=== PATIENT | male | born 1990 | race Caucasian/White ===

== ENCOUNTER 2019-03-24 22:42 | Emergency (ER) | payer OTHER ==
[~2019-03-24] VITALS: Ht 180.3 cm; Wt 72.6 kg
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
--- NOTE | 2019-03-24 23:02 | NUR ---
PT AMBULATED TO RESTROOM TO PROVIDE URINE SAMPLE.
[2019-03-24 23:21] LABS: APPEARANCE,URINE Clear (CLEAR); BILIRUBIN,URINE MODERATE (NEGATIVE); BLOOD, URINE Negative Ery/uL (NEGATIVE); KETONES,URINE 80 (NEGATIVE); LEUKOCYTE ESTERASE ,URINE Negative (NEGATIVE); NITRITE, URINE Negative (NEGATIVE); PROTEIN,URINE Trace mg/dl (NEGATIVE); UGLUCOSE 250 MG/DL mg/dL (NEGATIVE)
[2019-03-24 23:39] LABS: BASOPHILS % (AUTO) 0.5 % (0.0-2.0); EOSINOPHILS % (AUTO) 1.6 % (0.0-6.0); HEMATOCRIT 47 % (39-51); HEMOGLOBIN 16.1 g/dL (13.5-17.5); LYMPHOCYTES # (AUTO) 2.3 /CMM (0.8-4.8); LYMPHOCYTES % (AUTO) 36.3 % (20.0-44.0); MEAN CORPUSCULAR HGB CONC 34 g/dl (31.0-36.0); MEAN CORPUSCULAR VOLUME 96 fL (80-96); MONOCYTES # (AUTO) 0.6 /CMM (0.1-1.30); MONOCYTES % (AUTO) 8.8 % (2.0-12.0); NEUTROPHILS # (AUTO) 3.3 /CMM (1.8-8.9); NEUTROPHILS % (AUTO) 52.8 % (43.0-81.0); PLATELET COUNT (AUTO) 176 /CMM (150-450); RED BLOOD CELL COUNT(AUTO) 4.89 MIL/uL (4.5-6.0); WHITE BLOOD COUNT (AUTO) 6.3 K/uL (4.3-11.0)
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
[2019-03-24 23:52] LABS: BACTERIA,URINE None seen /HPF (None Seen); COLOR,URINE DARK YELLOW (YELLOW); SQUAMOUS EPITHELIAL CELL,UR Few /HPF (None Seen)
[2019-03-24 23:53] LABS: MUCUS,URINE Many /LPF (None Seen)
[2019-03-24 23:55] LABS: ALANINE AMINOTRANSFERASE 23 U/L (12-78); ALBUMIN 3.9 g/dL (3.4-5.0); ALKALINE PHOSPHATASE 68 U/L (46-116); ASPARTATE AMINOTRANSFERASE 24 U/L (15-37); BILIRUBIN,DIRECT 0.2 mg/dL (0.0-0.2); BILIRUBIN,TOTAL 0.8 mg/dL (0.2-1.0); CALCIUM, SERUM 9.3 mg/dL (8.5-10.1); CARBON DIOXIDE 29 mmol/L (21-32); CHLORIDE 105 mmol/L (98-107); CREATININE 1.1 mg/dL (0.6-1.3); GLUCOSE 160 mg/dL (74-106); POTASSIUM 3.8 mmol/L (3.5-5.1); SODIUM SERUM 141 mmol/L (136-145); TOTAL PROTEIN, SERUM 6.9 g/dL (6.4-8.2); UREA NITROGEN, BLOOD 13 mg/dL (7-18)
[2019-03-24 23:57] LABS: SALICYLATE 2.2 mg/dL (2.8-20.0)
[2019-03-24 23:58] LABS: ACETAMINOPHEN 0 ug/ml (10-30); ALCOHOL, BLOOD < 3 mg/dL (0-0)
[2019-03-25] MEDS ORDERED: PANTOPRAZOLE 40 MG TABLET.DR PO ONE
--- NOTE | 2019-03-25 06:00 | NUR ---
PT SLEEPING IN [facility]. NO SIGNS OF DISTRESS NOTED. WILL CONT TO MONITOR PT.
--- NOTE | 2019-03-25 10:16 | NUR ---
pt awake ate breakfast wnt to sleep denies pain or discomfort quiet, calm
--- NOTE | 2019-03-25 19:15 | NUR ---
CALL FROM [facility]. UNABLE TO ACCEPT PT.
--- NOTE | 2019-03-26 06:58 | NUR ---
PT STATING HE IS NO LONGER SUICIDAL. PT REQUESTING TO BE DISCHARGED HOME. DR CURIEL NOTIFIED. HOMELESS WAIVER SIGNED.
[2019-03-26 07:07] VITALS: BP 115/79
== END 2019-03-26 07:09 | disposition home or self-care (01) ==
LOC: ER 22:46
DX: R45.851 Suicidal ideations (principal); F12.90 Cannabis use, unspecified, uncomplicated; F41.9 Anxiety disorder, unspecified
CPT/HCPCS: 36415; 71045; 80048; 80076; 80305; 80307; 80329; 81001; 85025; 99284; G0480; 81000-TC